=== PATIENT | female | born 1955 | race Caucasian/White ===

== ENCOUNTER 2018-10-08 11:18 | Emergency (ER) | payer MEDICARE, OTHER, SELFPAY ==
[2018-10-08 11:24] VITALS: BP 158/86; PULSE 101; RESP 18; TEMP 36.4; O2SAT 99
[2018-10-08 12:05] VITALS: BP 125/67; PULSE 99; RESP 15; O2SAT 100
--- NOTE | 2018-10-08 12:07 | ED.GIBLEED ---
HPI - GI Bleed General Chief complaint: GI Bleed Stated complaint: Anal bleeding,clotted Time Seen by Provider: 10/08/18 11:48 Source: patient Mode of arrival: ambulatory Limitations: no limitations History of Present Illness HPI Narrative: 63-year-old female comes to the emergency department with complaint of rectal bleeding. Patient states that she any fevers or chills. She states that she has had maybe some nausea but no vomiting. She has had maybe some cramping may recent lower back cramping but no real abdominal pain by her description. She noticed some bright red blood after having several episodes of diarrhea the last night. Patient states that she did notice any black in her stool. She is not sure if it was actually in the stool or potentially from her urine. She thought that it was from the stool. She has had hematuria in the past. She has no bladder cancer, she is currently getting treatment through [facility] in [place] where she lives. She had her most recent BCG treatment a month ago. She attributed her discomfort to this. Related Data Allergies Allergy/AdvReac Type Severity Reaction Status Date / Time codeine Allergy Severe Anaphylaxis Verified 10/08/18 11:27 sulfamethoxazole Allergy Intermediate Vomiting Verified 10/08/18 11:27 [From Bactrim] trimethoprim [From Bactrim] Allergy Intermediate Vomiting Verified 10/08/18 11:27 latex Allergy Mild Hives Verified 10/08/18 11:27 Review of Systems Review of Systems ROS Unobtainable: All systems reviewed & are unremarkable except as noted in HPI and below Constitutional Denies chills, Denies fever(s), Denies lethargy and Denies weakness Cardiovascular Denies chest pain, Denies diaphoresis, Denies syncope, Denies rapid heart rate, Denies irregular heart rhythm, Denies lightheadedness, Denies radiating jaw, neck or arm pain, Denies palpitations, Denies dyspnea, Denies dyspnea on exertion and Denies orthopnea Respiratory Denies chest congestion, Denies cough, Denies dyspnea and Denies dyspnea on exertion Gastrointestinal Gastrointestinal: Denies abdominal pain, Denies melena, Reports hematochezia, Denies change in bowel habits, Denies tenesmus, Denies constipation, Reports diarrhea, Reports nausea (Mild), Denies vomiting, Denies hematemesis and Reports other (known hemorrhoid) Genitourinary Denies hematuria, Denies urinary frequency, Denies dysuria, Denies flank pain, Denies urinary incontinence and Denies urinary urgency Musculoskeletal Reports back pain (lower back cramping) Neurologic Denies syncope and Denies weakness Endocrine Denies palpitations [facility] Medical History (Updated 10/08/18 @ 14:11 by Halley Salazar DO) Bladder cancer (Chronic) Social History Smoking Status: Former smoker Social History Smoking Status: Former smoker Exam Narrative Exam Narrative: GENERAL: Alert and oriented x three, well-nourished, well-appearing female in no acute distress. HEENT: Head normocephalic, atraumatic, EOMI, pupils reactive, face symmetric, moist mucous membranes NECK: Supple, full range of motion CARDIOVASCULAR: Regular rate and rhythm without murmurs, rubs or gallops. RESPIRATORY: Breath sounds equal bilaterally, no wheezes rales or rhonchi. ABDOMEN: Soft, nontender. Normoactive bowel sounds all 4 quadrants. No guarding or rebound, rigidity, no mass. Patient has bright red right at the opening the rectum and positive Hemoccult. She does have some internal hemorrhoids month they are nontender. No masses noted. : No CVA tenderness EXTREMITIES: Normal range of motion, no clubbing or edema. Neurovascularly intact NEUROLOGICAL: Cranial nerves II through XII grossly intact. Moving all extremities SKIN: Warm, dry, no petechiae, no rashes or lesions. Initial Vital Signs Initial Vital Signs: Vital Signs Temperature 97.5 F L 10/08/18 11:24 Pulse Rate 101 H 10/08/18 11:24 Respiratory Rate 18 10/08/18 11:24 Blood Pressure 158/86 H 10/08/18 11:24 Pulse Oximetry 99 10/08/18 11:24 Course Orders Ordered: ED Orders 10/08/18 11:27 EKG-12 Lead Stat 10/08/18 11:45 Complete Blood Count AUTO DIFF Stat Comprehensive Metabolic Panel Stat Partial Thromboplastin Time Stat Prothrombin Time INR Stat Type and Screen Stat 10/08/18 12:13 Urine Microscopic Stat 10/08/18 12:36 CT abdomen pelvis w con Stat Discontinued Medications Sodium Chloride (Normal Saline 0.9%) 1,000 mls @ 1,000 mls/hr IV BOLUS ONE Stop: 10/08/18 13:37 Last Infusion: 10/08/18 14:20 Dose: 0 mls/hr Admin: 10/08/18 13:05 Dose: 1,000 mls/hr Vital Signs - 8 hr 10/08/18 12:05 10/08/18 12:10 10/08/18 13:09 Pulse Rate 99 H 91 H 95 H Respiratory Rate 15 17 18 Blood Pressure [Right Arm] 125/67 125/67 135/77 Pulse Oximetry 100 97 98 10/08/18 14:01 Pulse Rate 81 Respiratory Rate 16 Blood Pressure [Right Arm] 131/87 Pulse Oximetry 99 MDM - GI Bleed Lab Data Attestation: I reviewed the patient's lab results. Result diagrams: 10/08/18 11:45 10/08/18 11:45 Lab Results 10/08/18 10/08/18 10/08/18 Range/Units 11:45 11:45 11:45 WBC 10.0 (4.5-11.0) X10^3/uL RBC 4.47 (4.0-5.2) X10^6/uL Hgb 13.9 (12.0-16.0) g/dL Hct 40.5 (36-46) % MCV 90.7 (80-100) fL MCH 31.1 (26-34) PG MCHC 34.3 (30-36) % RDW 14.4 (11.6-14.8) % Plt Count 315 (150-400) X10^3/uL Neut % (Auto) 64.9 (50-75) % Lymph % (Auto) 24.2 L (25-40) % Hendry % (Auto) 7.9 (3-14) % Eos % (Auto) 2.1 (2-4) % Baso % (Auto) 0.9 (0-2) % Neut # (Auto) 6500 (6209-3743) /uL Lymph # (Auto) 2400 (2137-8587) /uL Hendry # (Auto) 800 (0-900) /uL Eos # (Auto) 200 (0-450) /uL Baso # (Auto) 100 (0-100) /uL PT 10.9 (10.1-12.7) SECONDS INR 1.0 (0.9-1.3) APTT 24 L (26.4-36.2) SECONDS Sodium 139 (137-145) mmol/L Potassium 4.0 (3.4-5.1) mmol/L Chloride 102 (98-107) mmol/L Carbon Dioxide 28 (22-32) mmol/L BUN 15 (7-17) mg/dL Creatinine 0.50 L (0.52-1.04) mg/dL Estimated GFR > 60.0 (>60) mL/min BUN/Creatinine Ratio 30.0 H (6-22) Glucose 99 (80-110) mg/dL Calcium 10.1 (8.4-10.2) mg/dL Total Bilirubin 0.7 (0.2-1.3) mg/dL AST 33 (14-36) IU/L ALT 28 (9-52) IU/L Alkaline Phosphatase 107 (38-126) U/L Total Protein 8.7 H (6.3-8.2) g/dL Albumin 4.7 (3.5-5.0) g/dL Globulin 4.0 (1.7-4.1) g/dL Albumin/Globulin Ratio 1.2 (1.0-2.8) Urine RBC (0-5/HPF) Urine WBC (0-5/HPF) Urine Bacteria (None) Ur Culture Indicated? Blood Type Antibody Screen 10/08/18 10/08/18 Range/Units 11:45 12:13 WBC (4.5-11.0) X10^3/uL RBC (4.0-5.2) X10^6/uL Hgb (12.0-16.0) g/dL Hct (36-46) % MCV (80-100) fL MCH (26-34) PG MCHC (30-36) % RDW (11.6-14.8) % Plt Count (150-400) X10^3/uL Neut % (Auto) (50-75) % Lymph % (Auto) (25-40) % Hendry % (Auto) (3-14) % Eos % (Auto) (2-4) % Baso % (Auto) (0-2) % Neut # (Auto) (8133-8102) /uL Lymph # (Auto) (6456-3821) /uL Hendry # (Auto) (0-900) /uL Eos # (Auto) (0-450) /uL Baso # (Auto) (0-100) /uL PT (10.1-12.7) SECONDS INR (0.9-1.3) APTT (26.4-36.2) SECONDS Sodium (137-145) mmol/L Potassium (3.4-5.1) mmol/L Chloride (98-107) mmol/L Carbon Dioxide (22-32) mmol/L BUN (7-17) mg/dL Creatinine (0.52-1.04) mg/dL Estimated GFR (>60) mL/min BUN/Creatinine Ratio (6-22) Glucose (80-110) mg/dL Calcium (8.4-10.2) mg/dL Total Bilirubin (0.2-1.3) mg/dL AST (14-36) IU/L ALT (9-52) IU/L Alkaline Phosphatase (38-126) U/L Total Protein (6.3-8.2) g/dL Albumin (3.5-5.0) g/dL Globulin (1.7-4.1) g/dL Albumin/Globulin Ratio (1.0-2.8) Urine RBC 1-5/hpf (0-5/HPF) Urine WBC 1-5/hpf (0-5/HPF) Urine Bacteria None seen (None) Ur Culture Indicated? Cult not indicated Blood Type O Negative Antibody Screen Negative Point of Care Testing Stool Occult Blood Positive Urine Dip Bedside Urine Glucose Negative Bedside Urine Bilirubin - Negative Bedside Urine Ketone - Negative Urine Specific [place] 1.015 Bedside Urine Occult Blood ++ Bedside Urine pH 6.5 Bedside Urine Protein +/- 15 Bedside Urine Urobilinogen - Negative Bedside Urine Nitrite - Negative Bedside Urine Leukocytes - Negative Esterase Imaging Data CT scan - abdomen: Radiologist's impression: Wali West [place] 63 F [address] [address] [address] Scan Report Signed Patient: Wali West LMR#: [id number] : 4Acct:[id number] Age/Sex: 63 / FDate of Service: 10/08/18 Loc: ED Accession Number: [id number] Procedure: CT abdomen pelvis w con Ordering Provider: Halley Salazar D.O. PROCEDURE: CT ABDOMEN PELVIS W CON INDICATIONS: rectal bleeding, no pain, hx bladder ca TECHNIQUE: After the administration of intravenous contrast, 5 mm thick sections acquired from the diaphragm to the symphysis. 5 mm coronal and sagittal reformats were acquired. For radiation dose reduction, the following was used: automated exposure control, adjustment of mA and/or kV according to patient size. COMPARISON: None. FINDINGS: Image quality: Excellent. ABDOMEN: Lung bases: Lung bases are clear. Heart size is normal. Solid organs: Liver is normal in size and enhancement. There is likely a 4 mm calcified stone within the gallbladder fundus. No gallbladder wall thickening or pericholecystic fluid. Biliary system is non dilated. Pancreas enhances normally. Spleen is normal in size and enhancement. There is a small splenule. No adrenal nodules. The kidneys demonstrate normal size and symmetric enhancement. There is mild dilatation of the right renal pelvis. The right ureter is mildly dilated throughout its course. There is focal wall thickening along the posterior aspect of the bladder in the region of the right ureterovesicular junction (series 2, image 70). No left hydronephrosis or hydroureter. There are left peripelvic renal cysts. Peritoneum and bowel: Bowel loops demonstrate normal wall thickness and caliber. The appendix is thin walled and gas filled. No free fluid or air. Nodes and vessels: No retroperitoneal or mesenteric adenopathy by size criteria. Aorta and inferior vena cava are normal in size. Miscellaneous: No ventral hernias. PELVIS: Genitourinary: Bladder wall thickness is normal. Miscellaneous: No inguinal hernias or adenopathy. Bones: No suspicious bony lesions. No vertebral body compression fractures. IMPRESSION: 1. Mild right pelviectasis, mild right hydroureter, and wall thickening at the right ureterovesicular junction. These findings are consistent with the patient's given diagnosis of bladder cancer. 2. No acute intra-abdominal findings. Normal appendix. No discrete findings to explain blood in stool. Colonoscopy recommended. These findings were discussed with Dr. Salazar at 12:27 PM on 10/08/18. Dictated by: Marion Reyes M.D. on 10/08/2018 at 12:20 Approved by: Marion Reyes M.D. on 10/08/2018 at 12:28 ECG Data Attestation: I personally reviewed and interpreted this ECG as follows: Interpretation: Sinus rhythm rate 89 P are 160 QRS 87 QTC of 433. Nonspecific change. No ST elevation. No priors available MDM Narrative Medical decision making narrative: Patient labs are normal. CT shows expected changes for bladder cancer. Discussed with patient she does need colonoscopy, vitals are stable. She was slightly tachycardic upon arrival but was also quite anxious. Patient feels comfortable returning home. We discussed she should return if she has any issues or worsening bleeding. Discharge Plan Departure Patient Disposition: Home Clinical Impression: Rectal bleeding Discharge Date/Time: 10/08/18 14:20 Interventions: ED Discharge Assessment Last Done: 10/08/18 14:20 Instructions: DI for Rectal Bleeding Activity Restrictions/Additional Instructions: Follow-up with her primary care call for an appointment. Discuss that you should get a colonoscopy for follow-up regarding your rectal bleeding. Continue home medications as prescribed. Return to the emergency department for fevers greater 100.4 F, new or worsening abdominal pain, black or but increasingly bloody stools, lightheadedness, passing out, new shortness breath, chest pain or pressure or other new or concerning symptoms.
[2018-10-08 12:10] VITALS: BP 125/67; PULSE 91; RESP 17; O2SAT 97
[2018-10-08 12:28] LABS: Prothrombin Time 10.9 SECONDS (10.1-12.7)
[2018-10-08 12:31] LABS: PTT Partial Thromboplastin Tim 24 SECONDS (26.4-36.2)
[2018-10-08 12:32] LABS: Alanine Aminotransferase 28 IU/L (9-52); Albumin 4.7 g/dL (3.5-5.0); Albumin Globulin Ratio 1.2 (1.0-2.8); Alkaline Phosphatase 107 U/L (38-126); Aspartate Aminotransferase 33 IU/L (14-36); Bilirubin Total 0.7 mg/dL (0.2-1.3); Blood Urea Nitrogen 15 mg/dL (7-17); Calcium 10.1 mg/dL (8.4-10.2); Carbon Dioxide 28 mmol/L (22-32); Chloride 102 mmol/L (98-107); Estimated Glomerular Filt Rate > 60.0 mL/min (>60); Glucose 99 mg/dL (80-110); Sodium 139 mmol/L (137-145); Total Protein 8.7 g/dL (6.3-8.2)
--- NOTE | 2018-10-08 12:36 | DI.CT.S_ITS ---
PROCEDURE: CT ABDOMEN PELVIS W CON INDICATIONS: rectal bleeding, no pain, hx bladder ca TECHNIQUE: After the administration of intravenous contrast, 5 mm thick sections acquired from the diaphragm to the symphysis. 5 mm coronal and sagittal reformats were acquired. For radiation dose reduction, the following was used: automated exposure control, adjustment of mA and/or kV according to patient size. COMPARISON: None. FINDINGS: Image quality: Excellent. ABDOMEN: Lung bases: Lung bases are clear. Heart size is normal. Solid organs: Liver is normal in size and enhancement. There is likely a 4 mm calcified stone within the gallbladder fundus. No gallbladder wall thickening or pericholecystic fluid. Biliary system is non dilated. Pancreas enhances normally. Spleen is normal in size and enhancement. There is a small splenule. No adrenal nodules. The kidneys demonstrate normal size and symmetric enhancement. There is mild dilatation of the right renal pelvis. The right ureter is mildly dilated throughout its course. There is focal wall thickening along the posterior aspect of the bladder in the region of the right ureterovesicular junction (series 2, image 70). No left hydronephrosis or hydroureter. There are left peripelvic renal cysts. Peritoneum and bowel: Bowel loops demonstrate normal wall thickness and caliber. The appendix is thin walled and gas filled. No free fluid or air. Nodes and vessels: No retroperitoneal or mesenteric adenopathy by size criteria. Aorta and inferior vena cava are normal in size. Miscellaneous: No ventral hernias. PELVIS: Genitourinary: Bladder wall thickness is normal. Miscellaneous: No inguinal hernias or adenopathy. Bones: No suspicious bony lesions. No vertebral body compression fractures. IMPRESSION: 1. Mild right pelviectasis, mild right hydroureter, and wall thickening at the right ureterovesicular junction. These findings are consistent with the patient's given diagnosis of bladder cancer. 2. No acute intra-abdominal findings. Normal appendix. No discrete findings to explain blood in stool. Colonoscopy recommended. These findings were discussed with Dr. Salazar at 12:27 PM on 10/08/18. Dictated by: Marion Reyes M.D. on 10/08/2018 at 12:20 Approved by: Marion Reyes M.D. on 10/08/2018 at 12:28
[2018-10-08 12:38] LABS: HEMOLYSIS 60 (0-50)
[2018-10-08 12:43] LABS: Bacteria Urine None Seen; Culture Indicated Urine Cult Not Indicated; RBC Urine 1-5/HPF (0-5/HPF); WBC Urine 1-5/HPF (0-5/HPF)
[2018-10-08 12:47] LABS: Add Manual Diff / Slide Review NO; Basophils Absolute Auto 100 /uL (0-100); Basophils Percent Auto 0.9 % (0-2); Eosinophils Absolute Auto 200 /uL (0-450); Eosinophils Percent Auto 2.1 % (2-4); Hematocrit 40.5 % (36-46); Hemoglobin 13.9 g/dL (12.0-16.0); Lymphocytes Absolute Auto 2400 /uL (1100-4500); Lymphocytes Percent Auto 24.2 % (25-40); Mean Corpuscular HGB Conc 34.3 % (30-36); Mean Corpuscular Hemoglobin 31.1 PG (26-34); Mean Corpuscular Volume 90.7 fL (80-100); Monocytes Absolute Auto 800 /uL (0-900); Monocytes Percent Auto 7.9 % (3-14); Neutrophils Absolute Auto 6500 /uL (1500-7000); Neutrophils Percent Auto 64.9 % (50-75); Platelet Count 315 X10^3/uL (150-400); Red Blood Cell Count 4.47 X10^6/uL (4.0-5.2); Red Cell Distribution Width 14.4 % (11.6-14.8)
[2018-10-08] MEDS: SODIUM CHLORIDE 0.9% 1,000 ML 1000 ML IV (13:05)
[2018-10-08 13:09] VITALS: BP 135/77; PULSE 95; RESP 18; O2SAT 98
--- NOTE | 2018-10-08 13:59 | ED_ITS ---
HPI - GI Bleed General Chief complaint: GI Bleed Stated complaint: Anal bleeding,clotted Time Seen by Provider: 10/08/18 11:48 Source: patient Mode of arrival: ambulatory Limitations: no limitations History of Present Illness HPI Narrative: 63-year-old female comes to the emergency department with complaint of rectal bleeding. Patient states that she any fevers or chills. She states that she has had maybe some nausea but no vomiting. She has had maybe some cramping may recent lower back cramping but no real abdominal pain by her description. She noticed some bright red blood after having several episodes of diarrhea the last night. Patient states that she did notice any black in her stool. She is not sure if it was actually in the stool or potentially from her urine. She thought that it was from the stool. She has had hematuria in the past. She has no bladder cancer, she is currently getting treatment through [facility] in [place] where she lives. She had her most recent BCG treatment a month ago. She attributed her discomfort to this. Related Data Allergies Allergy/AdvReac Type Severity Reaction Status Date / Time codeine Allergy Severe Anaphylaxis Verified 10/08/18 11:27 sulfamethoxazole Allergy Intermediate Vomiting Verified 10/08/18 11:27 [From Bactrim] trimethoprim [From Bactrim] Allergy Intermediate Vomiting Verified 10/08/18 11:27 latex Allergy Mild Hives Verified 10/08/18 11:27 Review of Systems Review of Systems ROS Unobtainable: All systems reviewed & are unremarkable except as noted in HPI and below Constitutional Denies chills, Denies fever(s), Denies lethargy and Denies weakness Cardiovascular Denies chest pain, Denies diaphoresis, Denies syncope, Denies rapid heart rate, Denies irregular heart rhythm, Denies lightheadedness, Denies radiating jaw, neck or arm pain, Denies palpitations, Denies dyspnea, Denies dyspnea on exertion and Denies orthopnea Respiratory Denies chest congestion, Denies cough, Denies dyspnea and Denies dyspnea on exertion Gastrointestinal Gastrointestinal: Denies abdominal pain, Denies melena, Reports hematochezia, Denies change in bowel habits, Denies tenesmus, Denies constipation, Reports diarrhea, Reports nausea (Mild), Denies vomiting, Denies hematemesis and Reports other (known hemorrhoid) Genitourinary Denies hematuria, Denies urinary frequency, Denies dysuria, Denies flank pain, Denies urinary incontinence and Denies urinary urgency Musculoskeletal Reports back pain (lower back cramping) Neurologic Denies syncope and Denies weakness Endocrine Denies palpitations [facility] Medical History (Updated 10/08/18 @ 14:11 by Halley Salazar DO) Bladder cancer (Chronic) Social History Smoking Status: Former smoker Social History Smoking Status: Former smoker Exam Narrative Exam Narrative: GENERAL: Alert and oriented x three, well-nourished, well- appearing female in no acute distress. HEENT: Head normocephalic, atraumatic, EOMI, pupils reactive, face symmetric, moist mucous membranes NECK: Supple, full range of motion CARDIOVASCULAR: Regular rate and rhythm without murmurs, rubs or gallops. RESPIRATORY: Breath sounds equal bilaterally, no wheezes rales or rhonchi. ABDOMEN: Soft, nontender. Normoactive bowel sounds all 4 quadrants. No g uarding or rebound, rigidity, no mass. Patient has bright red right at the opening the rectum and positive Hemoccult. She does have some internal hemorrhoids month they are nontender. No masses noted. : No CVA tenderness EXTREMITIES: Normal range of motion, no clubbing or edema. Neurovascularly intact NEUROLOGICAL: Cranial nerves II through XII grossly intact. Moving all extremities SKIN: Warm, dry, no petechiae, no rashes or lesions. Initial Vital Signs Initial Vital Signs: Vital Signs Temperature 97.5 F L 10/08/18 11:24 Pulse Rate 101 H 10/08/18 11:24 Respiratory Rate 18 10/08/18 11:24 Blood Pressure 158/86 H 10/08/18 11:24 Pulse Oximetry 99 10/08/18 11:24 Course Orders Ordered: ED Orders 10/08/18 11:27 EKG-12 Lead Stat 10/08/18 11:45 Complete Blood Count AUTO DIFF Stat Comprehensive Metabolic Panel Stat Partial Thromboplastin Time Stat Prothrombin Time INR Stat Type and Screen Stat 10/08/18 12:13 Urine Microscopic Stat 10/08/18 12:36 CT abdomen pelvis w con Stat Discontinued Medications Sodium Chloride (Normal Saline 0.9%) 1,000 mls @ 1,000 mls/hr IV BOLUS ONE Stop: 10/08/18 13:37 Last Infusion: 10/08/18 14:20 Dose: 0 mls/hr Admin: 10/08/18 13:05 Dose: 1,000 mls/hr Vital Signs - 8 hr 10/08/18 12:05 10/08/18 12:10 10/08/18 13:09 Pulse Rate 99 H 91 H 95 H Respiratory Rate 15 17 18 Blood Pressure [Right Arm] 125/67 125/67 135/77 Pulse Oximetry 100 97 98 10/08/18 14:01 Pulse Rate 81 Respiratory Rate 16 Blood Pressure [Right Arm] 131/87 Pulse Oximetry 99 MDM - GI Bleed Lab Data Attestation: I reviewed the patient's lab results. Result diagrams: 10/08/18 11:45 10/08/18 11:45 Lab Results 10/08/18 10/08/18 10/08/18 Range/Units 11:45 11:45 11:45 WBC 10.0 (4.5-11.0) X10^3/uL RBC 4.47 (4.0-5.2) X10^6/uL Hgb 13.9 (12.0-16.0) g/dL Hct 40.5 (36-46) % MCV 90.7 (80-100) fL MCH 31.1 (26-34) PG MCHC 34.3 (30-36) % RDW 14.4 (11.6-14.8) % Plt Count 315 (150-400) X10^3/uL Neut % (Auto) 64.9 (50-75) % Lymph % (Auto) 24.2 L (25-40) % Storey % (Auto) 7.9 (3-14) % Eos % (Auto) 2.1 (2-4) % Baso % (Auto) 0.9 (0-2) % Neut # (Auto) 6500 (0927-8070) /uL Lymph # (Auto) 2400 (2445-0276) /uL Storey # (Auto) 800 (0-900) /uL Eos # (Auto) 200 (0-450) /uL Baso # (Auto) 100 (0-100) /uL PT 10.9 (10.1-12.7) SECONDS INR 1.0 (0.9-1.3) APTT 24 L (26.4-36.2) SECONDS Sodium 139 (137-145) mmol/L Potassium 4.0 (3.4-5.1) mmol/L Chloride 102 (98-107) mmol/L Carbon Dioxide 28 (22-32) mmol/L BUN 15 (7-17) mg/dL Creatinine 0.50 L (0.52-1.04) mg/dL Estimated GFR > 60.0 (>60) mL/min BUN/Creatinine Ratio 30.0 H (6-22) Glucose 99 (80-110) mg/dL Calcium 10.1 (8.4-10.2) mg/dL Total Bilirubin 0.7 (0.2-1.3) mg/dL AST 33 (14-36) IU/L ALT 28 (9-52) IU/L Alkaline Phosphatase 107 (38-126) U/L Total Protein 8.7 H (6.3-8.2) g/dL Albumin 4.7 (3.5-5.0) g/dL Globulin 4.0 (1.7-4.1) g/dL Albumin/Globulin Ratio 1.2 (1.0-2.8) Urine RBC (0-5/HPF) Urine WBC (0-5/HPF) Urine Bacteria (None) Ur Culture Indicated? Blood Type Antibody Screen 10/08/18 10/08/18 Range/Units 11:45 12:13 WBC (4.5-11.0) X10^3/uL RBC (4.0-5.2) X10^6/uL Hgb (12.0-16.0) g/dL Hct (36-46) % MCV (80-100) fL MCH (26-34) PG MCHC (30-36) % RDW (11.6-14.8) % Plt Count (150-400) X10^3/uL Neut % (Auto) (50-75) % Lymph % (Auto) (25-40) % Storey % (Auto) (3-14) % Eos % (Auto) (2-4) % Baso % (Auto) (0-2) % Neut # (Auto) (6211-8794) /uL Lymph # (Auto) (6466-1242) /uL Storey # (Auto) (0-900) /uL Eos # (Auto) (0-450) /uL Baso # (Auto) (0-100) /uL PT (10.1-12.7) SECONDS INR (0.9-1.3) APTT (26.4-36.2) SECONDS Sodium (137-145) mmol/L Potassium (3.4-5.1) mmol/L Chloride (98-107) mmol/L Carbon Dioxide (22-32) mmol/L BUN (7-17) mg/dL Creatinine (0.52-1.04) mg/dL Estimated GFR (>60) mL/min BUN/Creatinine Ratio (6-22) Glucose (80-110) mg/dL Calcium (8.4-10.2) mg/dL Total Bilirubin (0.2-1.3) mg/dL AST (14-36) IU/L ALT (9-52) IU/L Alkaline Phosphatase (38-126) U/L Total Protein (6.3-8.2) g/dL Albumin (3.5-5.0) g/dL Globulin (1.7-4.1) g/dL Albumin/Globulin Ratio (1.0-2.8) Urine RBC 1-5/hpf (0-5/HPF) Urine WBC 1-5/hpf (0-5/HPF) Urine Bacteria None seen (None) Ur Culture Indicated? Cult not indicated Blood Type O Negative Antibody Screen Negative Point of Care Testing Stool Occult Blood Positive Urine Dip Bedside Urine Glucose Negative Bedside Urine Bilirubin - Negative Bedside Urine Ketone - Negative Urine Specific [place] 1.015 Bedside Urine Occult Blood ++ Bedside Urine pH 6.5 Bedside Urine Protein +/- 15 Bedside Urine Urobilinogen - Negative Bedside Urine Nitrite - Negative Bedside Urine Leukocytes - Negative Esterase Imaging Data CT scan - abdomen: Radiologist's impression: Wali West [place] 63 F [address] [address] [address] Scan Report Signed Patient: Wali West LMR#: [id number] : 4Acct:[id number] Age/Sex: 63 / FDate of Service: 10/08/18 Loc: ED Accession Number: [id number] Procedure: CT abdomen pelvis w con Ordering Provider: Halley Salazar D.O. PROCEDURE: CT ABDOMEN PELVIS W CON INDICATIONS: rectal bleeding, no pain, hx bladder ca TECHNIQUE: After the administration of intravenous contrast, 5 mm thick sections acquired from the diaphragm to the symphysis. 5 mm coronal and sagittal reformats were acquired. For radiation dose reduction, the following was used: automated exposure control, adjustment of mA and/or kV according to patient size. COMPARISON: None. FINDINGS: Image quality: Excellent. ABDOMEN: Lung bases: Lung bases are clear. Heart size is normal. Solid organs: Liver is normal in size and enhancement. There is likely a 4 mm calcified stone within the gallbladder fundus. No gallbladder wall thickening or pericholecystic fluid. Biliary system is non dilated. Pancreas enhances normally. Spleen is normal in size and enhancement. There is a small splenule. No adrenal nodules. The kidneys demonstrate normal size and symmetric enhancement. There is mild dilatation of the right renal pelvis. The right ureter is mildly dilated throughout its course. There is focal wall thickening along the posterior aspect of the bladder in the region of the right ureterovesicular junction (series 2, image 70). No left hydronephrosis or hydroureter. There are left peripelvic renal cysts. Peritoneum and bowel: Bowel loops demonstrate normal wall thickness and caliber. The appendix is thin walled and gas filled. No free fluid or air. Nodes and vessels: No retroperitoneal or mesenteric adenopathy by size criteria. Aorta and inferior vena cava are normal in size. Miscellaneous: No ventral hernias. PELVIS: Genitourinary: Bladder wall thickness is normal. Miscellaneous: No inguinal hernias or adenopathy. Bones: No suspicious bony lesions. No vertebral body compression fractures. IMPRESSION: 1. Mild right pelviectasis, mild right hydroureter, and wall thickening at the right ureterovesicular junction. These findings are consistent with the patient's given diagnosis of bladder cancer. 2. No acute intra-abdominal findings. Normal appendix. No discrete findings to explain blood in stool. Colonoscopy recommended. These findings were discussed with Dr. Salazar at 12:27 PM on 10/08/18. Dictated by: Marion Reyes M.D. on 10/08/2018 at 12:20 Approved by: Marion Reyes M.D. on 10/08/2018 at 12:28 ECG Data Attestation: I personally reviewed and interpreted this ECG as follows: Interpretation: Sinus rhythm rate 89 P are 160 QRS 87 QTC of 433. Nonspecific change. No ST elevation. No priors available MDM Narrative Medical decision making narrative: Patient labs are normal. CT shows expected changes for bladder cancer. Discussed with patient she does need colonoscopy, vitals are stable. She was slightly tachycardic upon arrival but was also quite anxious. Patient feels comfortable returning home. We discussed she should return if she has any issues or worsening bleeding. Discharge Plan Departure Patient Disposition: Home Clinical Impression: Rectal bleeding Discharge Date/Time: 10/08/18 14:20 Interventions: ED Discharge Assessment Last Done: 10/08/18 14:20 Instructions: DI for Rectal Bleeding Activity Restrictions/Additional Instructions: Follow-up with her primary care call for an appointment. Discuss that you should get a colonoscopy for follow-up regarding your rectal bleeding. Continue home medications as prescribed. Return to the emergency department for fevers greater 100.4 F, new or worsening abdominal pain, black or but increasingly bloody stools, lightheadedness, passing out, new shortness breath, chest pain or pressure or other new or co ncerning symptoms.
[2018-10-08 14:01] VITALS: BP 131/87; PULSE 81; RESP 16; O2SAT 99
== END 2018-10-08 14:20 | disposition home or self-care (01) ==
PROVIDERS: Emergency Provider Emergency Medicine
DX: K62.5 Hemorrhage of anus and rectum (principal); R00.0 Tachycardia, unspecified; Z85.51 Personal history of malignant neoplasm of bladder
CPT/HCPCS: 36591; 74177; 80053; 81003; 81015; 82272; 85025; 85610; 85730; 86850; 86900; 86901; 93005; 96360; 99283; 99285